=== PATIENT | female | born 1990 | race Two or more races ===

== ENCOUNTER 2018-11-09 07:54 | Inpatient (IN) | payer OTHER ==
[~2018-11-09] VITALS: Ht 160 cm; Wt 54.0 kg
== END 2018-11-11 12:59 | DRG 807 ==
LOC: OB/GYN 07:54 → LDR 07:54 → OB/GYN 23:11
PROVIDERS: ADMIT Obstetrics & Gynecology
PROC: 10E0XZZ Delivery of Products of Conception, External Approach (ICD-10-PCS; principal; 2018-11-09)
PROC: 4A0HXFZ Measurement of Products of Conception, Cardiac Rhythm, External Approach (ICD-10-PCS; 2018-11-09)
DX: O80 Encounter for full-term uncomplicated delivery (principal); Z37.0 Single live birth; Z3A.39 39 weeks gestation of pregnancy